=== PATIENT | female | born 1965 | race Two or more races ===

== ENCOUNTER → 2017-11-04 09:33 | Outpatient (CLI) | payer BC, SELFPAY ==
[2017-11-04 10:32] LABS: Basophils % 0.6 % (0.1-2.0); Eosinophils # 0.2 K/mm3 (0.0-0.4); Eosinophils % 2.1 % (0.1-12.0); Hematocrit 31.2 % (37.0-47.0); Hemoglobin 8.8 g/dL (12.2-16.2); Lymphocytes # 1.7 K/mm3 (0.7-4.5); Lymphocytes % 22.2 K/mm3 (10-50); Mean Corpuscular HGB Conc 28.1 g/dL (31.8-35.4); Mean Corpuscular Hemoglobin 19.8 pg (27.0-31.2); Mean Corpuscular Volume 70.6 fl (81-99); Mean Platelet Volume 7.4 fl (7.4-10.4); Monocytes # 0.5 K/mm3 (0.1-1.0); Monocytes % 6.3 % (1.7-9.3); Neutrophils # 5.2 K/mm3 (1.8-7.8); Neutrophils % 68.9 % (37.0-80.0); Platelet Count 472 K/mm3 (142-424); Red Blood Count 4.42 M/mm3 (4.20-5.40); White Blood Count 7.5 K/mm3 (4.8-10.8)
[2017-11-04 10:44] LABS: Alanine Aminotransferase 45 U/L (12-78); Albumin Level 3.8 gm/dL (3.4-5.0); Albumin/Globulin Ratio 0.8 (1.1-1.8); Alkaline Phosphatase 91 U/L (46-116); Anion Gap 15.6 mEq/L (5-15); Aspartate Amino Transferase 29 U/L (15-37); Bilirubin,Total 0.3 mg/dL (0.2-1.0); Blood Urea Nitrogen 12 mg/dL (7-18); Calcium 9.4 mg/dL (8.5-10.1); Carbon Dioxide 27 mmol/L (21.0-32.0); Chloride 104 mmol/L (98-107); Chol/HDL Ratio 2.5 (1-3.5); Cholesterol 144 mg/dL (140-200); Creatinine,Serum 0.98 mg/dL (0.55-1.02); Estimated Glomerular Filt Rate 60 ml/min (>60); GFR (African American) 72 ML/MIN (>60); Globulin 4.5 gm/dl (1.3-3.2); Glucose 103 mg/dL (74-106); HDL Cholesterol 57 mg/dL (29-89); LDL Cholesterol 77 mg/dL (0-130); Potassium 4.6 mmoL/L (3.5-5.1); Sodium 142 mmol/L (136-145); Total Protein,Serum 8.3 gm/dL (6.4-8.2); Triglycerides 48 mg/dL (30-200); VLDL Cholesterol 10 mg/dL (0-40)
== END ==
PROVIDERS: Visit Provider Internal Medicine
DX: N92.0 Excessive and frequent menstruation with regular cycle (principal); I10 Essential (primary) hypertension; E78.5 Hyperlipidemia, unspecified
CPT/HCPCS: 36415; 80053; 80061; 85025

== ENCOUNTER → 2017-11-12 13:38 | Outpatient (CLI) | payer BC, SELFPAY ==
--- NOTE | 2017-11-12 13:40 | US_ITS ---
US transvaginal HISTORY: ITS.REASON: dysfunctional/heavy menstrual bleeding ORDERING PHYSICIAN: Angelica Avina MD PATIENT AGE: 52 years FINDINGS: The uterus is enlarged at 11 x 5 x 6.5 cm. Combined endometrial thickness is 19 mm with some heterogeneous echogenicity. Nabothian cysts are noted. A 1.2 x 0.9 cm area of heterogeneous echogenicity is present along the anterior aspect of the uterus superiorly near the endometrial area consistent with a fibroid. There is a 2.2 x 1 cm area of heterogeneous echogenicity in the mid aspect of the uterus anteriorly consistent with fibroid The left ovary is 1.9 x 1.5 cm. Blood flow is present. The right ovary is 3 x 2.1 cm containing a 1.3 cm cyst. Blood flow is noted. No cul-de-sac fluid. IMPRESSION: Enlarged uterus with fibroid involvement along with thickened endometrium.
== END ==
PROVIDERS: PCP Internal Medicine; Visit Provider Obstetrics & Gynecology
DX: N93.9 Abnormal uterine and vaginal bleeding, unspecified (principal); N94.6 Dysmenorrhea, unspecified
CPT/HCPCS: 76830

== ENCOUNTER → 2019-09-20 08:28 | Outpatient (CLI) | payer BC, SELFPAY ==
[2019-09-20 10:03] LABS: Basophils % 0.6 % (0.1-2.0); Eosinophils # 0.2 K/mm3 (0.0-0.4); Eosinophils % 2.8 % (0.1-12.0); Hematocrit 43.9 % (37.0-47.0); Hemoglobin 13.8 g/dL (12.2-16.2); Lymphocytes # 1.4 K/mm3 (0.7-4.5); Mean Corpuscular HGB Conc 31.5 g/dL (31.8-35.4); Mean Corpuscular Hemoglobin 28.6 pg (27.0-31.2); Mean Corpuscular Volume 90.9 fl (81-99); Mean Platelet Volume 8.8 fl (7.4-10.4); Monocytes # 0.4 K/mm3 (0.1-1.0); Monocytes % 6.2 % (1.7-9.3); Neutrophils # 4.2 K/mm3 (1.8-7.8); Neutrophils % 68.4 % (37.0-80.0); Platelet Count 300 K/mm3 (142-424); Red Blood Count 4.83 M/mm3 (4.20-5.40); Red Cell Distribution Width 13.9 % (11.5-17.5); White Blood Count 6.2 K/mm3 (4.8-10.8)
[2019-09-20 11:42] LABS: Chloride 106 mmol/L (98-107); Potassium 4.3 mmoL/L (3.5-5.1); Sodium 141 mmol/L (136-145)
[2019-09-20 11:44] LABS: Blood Urea Nitrogen 12 mg/dl (7-17); Estimated Glomerular Filt Rate 58 ml/min (>60); GFR (African American) 70 ML/MIN (>60)
[2019-09-20 11:45] LABS: Alanine Aminotransferase 26 U/L (12-78); Albumin Level 4.2 g/dl (3.5-5.0); Albumin/Globulin Ratio 1.3 (1.1-1.8); Alkaline Phosphatase 79 U/L (38-126); Anion Gap 14.3 mEq/L (5-15); Aspartate Amino Transferase 31 U/L (14-36); Calcium 9.7 mg/dl (8.4-10.2); Carbon Dioxide 25 mmol/L (22.0-30.0); Cholesterol 131 mg/dl (140-200); Globulin 3.3 g/dL (1.3-3.2); Glucose 105 mg/dl (74-100); Total Protein,Serum 7.5 g/dl (6.3-8.2); Triglycerides 72 mg/dl (30-150); VLDL Cholesterol 14 mg/dL (0-40)
[2019-09-20 11:46] LABS: HDL Cholesterol 43 mg/dl (40-60)
[2019-09-20 11:56] LABS: Direct LDL Cholesterol 75.52 mg/dL (100-129)
[2019-09-21 04:04] LABS: Iron 151 ug/dL (27-159); UIBC 222 ug/dL (131-425)
[2019-09-21 14:59] LABS: Iron Saturation 40 % (15-55)
== END ==
PROVIDERS: Visit Provider Internal Medicine
DX: E78.5 Hyperlipidemia, unspecified (principal); I10 Essential (primary) hypertension; D50.9 Iron deficiency anemia, unspecified
CPT/HCPCS: 36415; 80053; 80061; 83540; 83550; 85025

== ENCOUNTER 2021-03-26 19:03 | Emergency (ER) | payer BC, SELFPAY ==
[2021-03-26 20:10] VITALS: BP 186/107; PULSE 74; RESP 20; TEMP 37; O2SAT 100; BMI 36.6
--- NOTE | 2021-03-26 20:40 | HMH.EDUTC ---
[facility] [place] Clinical Impression: Exposure to COVID-19 virus Sinusitis Qualifiers: Sinusitis location: unspecified location Chronicity: unspecified Qualified Code(s): J32.9 - Chronic sinusitis, unspecified Disposition: Home, Self-Care Condition on Discharge: Good Instructions: DI for COVID-19 (Suspected or Confirmed ), Preventing the Spread of Coronavirus Discharge Instructions Additional Instructions: *Monitor Temp, Over the counter Motrin or Tylenol as directed/as needed Tylenol every 4 hours and Motrin every 6 hours (as long as your family doctor has told you that you can take it) for fever or pain. and straight to ER if unable to lower temp less than 101.0 after medication given *Warm salt water gargles may help to soothe the throat *Throat Lozenges *Warm fluids like tea with honey may help to soothe the throat *Sleep elevated *Humidifier/Vaporizer *Flonase 2 sprays in each nostril daily but be aware that it may take 2-3 days before you notice improvement *Bromfed may cause drowsiness. Know how it effects you (your child) before driving, caring for small child, or sending your child to school. Not other antihistamines/allergy medications while taking bromfed Your throat swab was sent for culture. Those results are typically sent to your primary care. Be sure to follow up in 2-3 days with your family doctor/primary care physician if no improvement so they can review those result and treat if necessary. If you don?t have a primary care doctor, I recommend you get one but in the mean time, you will have to return to a walk in clinic Follow up IMMEDIATELY for new or worsening symptoms or no Noticeable improvement over the next 48-72 hours. 911 for difficulty breathing or swallowing You were tested for today for COVID19 your test result should be back in the next 24-48 hours, you was given handout on how to check for your results on [facility] if you have issues or no internet access you may call the [facility] You was given a handout with instructions for Self Quarantine and Self isolation for while you wait on test results and what to do if they are positive If you are positive the Health Dept will be contacting you also Make sure to take your Vitamins Vit. C Vit D and Zinc if you can take them Prescriptions: Fluticasone Propionate [Flonase Allergy Relief NS] 1 spray NS DAILY #1 each Transmission Status: Pending to [facility] Azithromycin [Z-Sherman 250mg Tab] 250 mg PO DIRECTED #6 tab Transmission Status: Pending to [facility] Referrals: Roman Keys [Primary Care Provider] - As needed Time of Disposition: 20:53 Medical Decision Making - Ashok Inquiry Pt receiving controlled substance: No Ashok was queried for this patient: No Vital Signs: 03/26/21 20:10 Temperature 98.6 F Temperature Source Oral Pulse Rate [Right Brachial] 74 Respiratory Rate 20 Blood Pressure [Right Arm] 186/107 H Blood Pressure Mean [Right Arm] 133 Blood Pressure Source [Right Arm] Automatic Cuff Blood Pressure Position [Right Arm] Sitting 02 Sat by Pulse Oximetry 100 Oxygen Delivery Method Room Air [facility] [place] HPI - General Stated complaint: covid test with symptoms Time Seen by Provider: 03/26/21 20:40 Mode of Arrival: Ambulatory Source of Information: Patient Limitations: No Limitations Description of Symptoms (Recalled from Triage Doc. by RN): PATIENT C/O LOSS OF SMELL, COUGH, DIARRHEA, AND CONGESTION. POSSIBLE SECONDARY EXPOSURE HEENT Symptoms (Recalled from RN notes): No Resp Symptoms (Recalled from RN notes): Yes Skin Symptoms (Recalled from RN notes): No MS Symptoms (Recalled from RN notes): No Functional Status (Recalled from RN notes): WNL - History of Present Illness Provider Complaint: Patient state that he son and daughter in law was dx with COVID about a week ago States that she has been keeping his kids States that she started with body aches, chills, sinus congestion and pressure along with diarrh
[2021-03-26 20:48] VITALS: BP 186/107; PULSE 74; RESP 20; TEMP 37; O2SAT 100
== END 2021-03-26 20:59 | disposition home or self-care (01) ==
PROVIDERS: Emergency Provider Nurse Practitioner; PCP Internal Medicine
DX: U07.1 COVID-19 (principal); J32.9 Chronic sinusitis, unspecified; I10 Essential (primary) hypertension
CPT/HCPCS: 99202; C9803; G0463; U0003; U0005

== ENCOUNTER → 2023-02-24 12:46 | Outpatient (CLI) | payer BC, SELFPAY ==
[2023-02-24 13:04] LABS: Basophils % 0.5 % (0.1-2.0); Eosinophils # 0.2 K/mm3 (0.0-0.4); Eosinophils % 2.6 % (0.1-12.0); Hematocrit 45.5 % (37.0-47.0); Lymphocytes # 1.5 K/mm3 (0.7-4.5); Lymphocytes % 22.9 % (10-50); Mean Corpuscular HGB Conc 32.9 g/dL (31.8-35.4); Mean Corpuscular Hemoglobin 32.1 pg (27.0-31.2); Mean Corpuscular Volume 97.6 fl (81-99); Mean Platelet Volume 8.5 fl (7.4-10.4); Monocytes # 0.4 K/mm3 (0.1-1.0); Monocytes % 5.9 % (1.7-9.3); Neutrophils # 4.4 K/mm3 (1.8-7.8); Neutrophils % 68.1 % (37.0-80.0); Platelet Count 318 K/mm3 (142-424); Red Blood Count 4.66 M/mm3 (4.20-5.40); Red Cell Distribution Width 12.5 % (11.5-17.5); White Blood Count 6.4 K/mm3 (4.8-10.8)
[2023-02-24 13:25] LABS: Alanine Aminotransferase 28 U/L (12-78); Albumin Level 4.5 g/dl (3.5-5.0); Albumin/Globulin Ratio 1.2 (1.1-1.8); Alkaline Phosphatase 105 U/L (38-126); Anion Gap 14.4 mEq/L (5-15); Aspartate Amino Transferase 29 U/L (14-36); Bilirubin,Total 0.8 mg/dl (0.2-1.3); Blood Urea Nitrogen 19 mg/dl (7-17); Calcium 9.4 mg/dl (8.4-10.2); Carbon Dioxide 26 mmol/L (22.0-30.0); Chloride 105 mmol/L (98-107); Chol/HDL Ratio 2.8 (1-3.5); Cholesterol 148 mg/dl (140-200); Estimated Glomerular Filt Rate 51 ml/min (>60); GFR (African American) 62 ML/MIN (>60); Globulin 3.7 g/dL (1.3-3.2); Glucose 100 mg/dl (74-100); HDL Cholesterol 52 mg/dl (40-60); Potassium 4.4 mmoL/L (3.5-5.1); Sodium 141 mmol/L (136-145); Total Protein,Serum 8.2 g/dl (6.3-8.2); Triglycerides 57 mg/dl (30-150); VLDL Cholesterol 11 mg/dL (0-40)
[2023-02-24 13:36] LABS: Direct LDL Cholesterol 76.03 mg/dL (100-129)
== END ==
LOC: LAB.DROPOF 12:47
PROVIDERS: PCP Internal Medicine; Visit Provider Internal Medicine
DX: I10 Essential (primary) hypertension (principal); E78.5 Hyperlipidemia, unspecified; D50.9 Iron deficiency anemia, unspecified
CPT/HCPCS: 80053; 80061; 85025

== ENCOUNTER 2023-08-25 09:52 | Outpatient (CLI) | payer BC, SELFPAY ==
--- NOTE | 2023-08-25 09:52 | MM_ITS ---
PROCEDURE INFORMATION: Exam: MG Bilateral Screening 3D Mammography Exam date and time: 08/25/2023 10:03 AM Age: 58 years old Clinical indication: Screening examination; Additional info: Screening mammogram . Family history of breast carcinoma. TECHNIQUE: Imaging protocol: Bilateral Screening tomosynthesis and 2D mammography including computer-aided detection (CAD) when performed. COMPARISON: No relevant prior studies available. FINDINGS: MAMMOGRAPHY: Breast composition: The breasts are heterogeneously dense, which may obscure small masses. Mass: No suspicious masses. Architectural distortion: No suspicious distortion. Calcifications: There are multiple bilateral groupings of calcifications scattered in the right upper outer quadrant at middle depth and in the upper outer and lower outer left breast at middle depth. These bilateral calcifications are best seen on CC projection. Asymmetric density: None. Skin thickening: None. Axillary adenopathy: None. IMPRESSION: 1. Recommend bilateral spot magnification CC/ML views for further evaluation of multiple bilateral groupings of calcifications in the outer right breast and outer left breast, as discussed above. 2. Of note, patient reports having prior mammograms. Every attempt should be made to obtain prior mammograms for comparison. If/when these prior exams become available for comparison, an addendum will be made, if necessary. 3. Given the reported risk factors for this patient, a breast cancer risk assessment may prove useful for further evaluation. ASSESSMENT: BI-RADS Category 0: Incomplete- Need Additional Imaging Evaluation and/or Prior Mammograms for Comparison
== END 2023-08-25 23:59 ==
LOC: RAD 09:52
PROVIDERS: PCP Internal Medicine; Visit Provider Obstetrics & Gynecology
DX: Z12.31 Encounter for screening mammogram for malignant neoplasm of breast (principal)
CPT/HCPCS: 77063; 77067

== ENCOUNTER 2023-10-02 13:41 | Outpatient (CLI) | payer BC, SELFPAY ==
--- NOTE | 2023-10-02 13:42 | MM_ITS ---
PROCEDURE INFORMATION: Exam: MG Bilateral Diagnostic Breast Tomosynthesis Exam date and time: 10/02/2023 1:39 PM Age: 58 years old Clinical indication: Patient recalled on the basis of a screening mammogram for further evaluation; Bilateral breasts; calcifications TECHNIQUE: Imaging protocol: Bilateral Diagnostic tomosynthesis and 2D mammography including computer-aided detection (CAD) when performed. Unilateral or bilateral exam. COMPARISON: MG MM DIG SCREENING MAMM BI W/CAD 08/25/2023 10:03 AM FINDINGS: MAMMOGRAPHY: Breast composition: The breast is heterogeneouly dense, which may obscure small masses (based on the most recent screening mammogram report). Digital diagnostic magnification views of both upper outer quadrants demonstrate fairly widespread calcifications. The calcifications appear fairly uniform in size, shape, and density and are probably benign in etiology. IMPRESSION: Probably benign calcifications in both upper outer quadrant. A six-month follow-up diagnostic bilateral mammogram with magnification views are recommended to ensure stability over time. ASSESSMENT: BI-RADS Category 3: Probably benign.
== END 2023-10-02 23:59 ==
LOC: RAD 13:42
PROVIDERS: PCP Internal Medicine; Visit Provider Obstetrics & Gynecology
DX: R92.8 Other abnormal and inconclusive findings on diagnostic imaging of breast (principal)
CPT/HCPCS: 77062; 77066; G0279

== ENCOUNTER 2024-02-16 17:01 | Outpatient (CLI) | payer BC, SELFPAY ==
[2024-02-16 17:30] LABS: Basophils % 0.6 % (0.1-2.0); Eosinophils # 0.1 K/mm3 (0.0-0.4); Eosinophils % 1.2 % (0.1-12.0); Hematocrit 43.5 % (37.0-47.0); Hemoglobin 14.3 g/dL (12.2-16.2); Lymphocytes # 1.5 K/mm3 (0.7-4.5); Mean Corpuscular HGB Conc 32.9 g/dL (31.8-35.4); Mean Corpuscular Hemoglobin 32.4 pg (27.0-31.2); Mean Corpuscular Volume 98.6 fl (81-99); Mean Platelet Volume 9.4 fl (7.4-10.4); Monocytes # 0.5 K/mm3 (0.1-1.0); Monocytes % 6.8 % (1.7-9.3); Neutrophils # 5.7 K/mm3 (1.8-7.8); Neutrophils % 72.4 % (37.0-80.0); Platelet Count 320 K/mm3 (142-424); Red Blood Count 4.41 M/mm3 (4.20-5.40); Red Cell Distribution Width 12.9 % (11.5-17.5); White Blood Count 7.9 K/mm3 (4.8-10.8)
[2024-02-16 17:51] LABS: Alanine Aminotransferase 39 U/L (12-78); Albumin Level 4.3 g/dl (3.5-5.0); Albumin/Globulin Ratio 1.2 (1.1-1.8); Alkaline Phosphatase 77 U/L (38-126); Anion Gap 16.1 mEq/L (5-15); Aspartate Amino Transferase 36 U/L (14-36); Bilirubin,Total 0.8 mg/dl (0.2-1.3); Blood Urea Nitrogen 14 mg/dl (7-17); Calcium 9.7 mg/dl (8.4-10.2); Carbon Dioxide 24 mmol/L (22.0-30.0); Chloride 102 mmol/L (98-107); Cholesterol 146 mg/dl (140-200); Estimated Glomerular Filt Rate 57 ml/min (>60); GFR (African American) 69 ML/MIN (>60); Globulin 3.6 g/dL (1.3-3.2); Glucose 118 mg/dl (74-100); HDL Cholesterol 48 mg/dl (40-60); Potassium 3.1 mmoL/L (3.5-5.1); Sodium 139 mmol/L (136-145); Total Protein,Serum 7.9 g/dl (6.3-8.2); Triglycerides 115 mg/dl (30-150); VLDL Cholesterol 23 mg/dL (0-40)
== END 2024-02-16 23:59 | disposition home or self-care (01) ==
LOC: LAB.DROPOF 17:01
PROVIDERS: PCP Internal Medicine; Visit Provider Internal Medicine
DX: E78.5 Hyperlipidemia, unspecified (principal); I10 Essential (primary) hypertension; Z12.11 Encounter for screening for malignant neoplasm of colon; Z86.2 Personal history of diseases of the blood and blood-forming organs and certain disorders involving the immune mechanism
CPT/HCPCS: 80053; 80061; 85025

== ENCOUNTER 2024-04-06 14:40 | Outpatient (CLI) | payer BC, SELFPAY ==
[2024-04-06 17:08] LABS: Potassium 4.3 mmoL/L (3.5-5.1)
[2024-04-06 17:35] LABS: Hemoglobin A1C 6.2 % (4.0-6.0)
== END 2024-04-06 23:59 | disposition home or self-care (01) ==
LOC: LAB.DROPOF 04-07 13:37
PROVIDERS: PCP Internal Medicine; Visit Provider Internal Medicine
DX: I10 Essential (primary) hypertension (principal); E87.6 Hypokalemia; R73.02 Impaired glucose tolerance (oral)
CPT/HCPCS: 83036; 84132

== ENCOUNTER 2025-01-13 09:59 | Outpatient (CLI) | payer BC, SELFPAY ==
[2025-01-13 15:10] LABS: Hematocrit 44.2 % (37.0-47.0); Hemoglobin 14.4 g/dL (12.2-16.2); Immature Granulocytes % 0.2 %; Mean Corpuscular HGB Conc 32.6 g/dL (31.8-35.4); Mean Corpuscular Hemoglobin 31.0 pg (27.0-31.2); Mean Corpuscular Volume 95.3 fl (81-99); Nucleated Red Blood Cells % 0 %; Platelet Count 268 K/mm3 (142-424); Red Blood Count 4.64 M/mm3 (4.20-5.40); Red Cell Distribution Width-SD 43.1 fL; White Blood Count 5.8 K/mm3 (4.8-10.8)
[2025-01-13 15:45] LABS: Alanine Aminotransferase 39 U/L (12-78); Albumin Level 4.7 g/dl (3.5-5.0); Albumin/Globulin Ratio 1.3 (1.1-1.8); Alkaline Phosphatase 97 U/L (38-126); Anion Gap 13.6 mEq/L (5-15); Aspartate Amino Transferase 40 U/L (14-36); Bilirubin,Total 1.3 mg/dl (0.2-1.3); Blood Urea Nitrogen 19 mg/dl (7-17); Calcium 9.8 mg/dl (8.4-10.2); Carbon Dioxide 29 mmol/L (22.0-30.0); Chloride 99 mmol/L (98-107); Cholesterol 178 mg/dl (140-200); Creatinine,Serum 1.00 mg/dl (0.52-1.04); Estimated Glomerular Filt Rate 57 ml/min (>60); GFR (African American) 69 ML/MIN (>60); Globulin 3.7 g/dL (1.3-3.2); Glucose 96 mg/dl (74-100); HDL Cholesterol 46 mg/dl (40-60); Potassium 4.6 mmoL/L (3.5-5.1); Sodium 137 mmol/L (136-145); Total Protein,Serum 8.4 g/dl (6.3-8.2); Triglycerides 83 mg/dl (30-150)
[2025-01-13 18:09] LABS: Hemoglobin A1C 7.4 % (4.0-6.0)
--- OUTSIDE RECORDS SUMMARY | 2025-01-17 10:06 | XMS_ITS ---
Author Organization Unknown Medications Medication Instructions Effective Dates (start - stop) Status 1 ML medroxyprogesterone alley yañez 150 MG/ML Injection [id number]:00:00.000+00 :00 - Completed losartan potassium 50 MG Oral Tablet [id number]:00:00.000+00 :00 - Completed temazepam 15 MG Oral Capsule 08-24-21:00:00.000+00 :00 - Completed acyclovir 200 MG Oral Capsule 03-01-06:00:00.000+00 :00 - Completed 1 ML medroxyprogesterone alley yañez 150 MG/ML Injection [id number]:00:00.000+00 :00 - Completed temazepam 15 MG Oral Capsule 08-22-15:00:00.000+00 :00 - Completed temazepam 15 MG Oral Capsule 09-12-06:00:00.000+00 :00 - Completed 1 ML medroxyprogesterone alley yañez 150 MG/ML Injection [id number]:00:00.000+00 :00 - Completed losartan potassium 50 MG Oral Tablet [id number]:00:00.000+00 :00 - Completed temazepam 15 MG Oral Capsule 08-21-15:00:00.000+00 :00 - Completed temazepam 15 MG Oral Capsule 09-13-05:00:00.000+00 :00 - Completed losartan potassium 50 MG Oral Tablet [id number]:00:00.000+00 :00 - Completed 1 ML medroxyprogesterone alley yañez 150 MG/ML Injection [id number]:00:00.000+00 :00 - Completed acyclovir 200 MG Oral Capsule 04-04-30:00:00.000+00 :00 - Completed temazepam 15 MG Oral Capsule 09-15-07:00:00.000+00 :00 - Completed amlodipine 10 MG Oral Tablet 09-15-07:00:00.000+00 :00 - Completed temazepam 15 MG Oral Capsule 08-23-19:00:00.000+00 :00 - Completed valacyclovir 500 MG Oral Tablet [id number]:00:00.000+00 :00 - Completed amlodipine 10 MG Oral Tablet 08-23-00:00:00.000+00 :00 - Completed temazepam 15 MG Oral Capsule 09-17-06:00:00.000+00 :00 - Completed temazepam 15 MG Oral Capsule 09-11-04::00.000+00 :00 - Completed temazepam 15 MG Oral Capsule 09-15-05:00:00.000+00 :00 - Completed cefdinir 300 MG Oral Capsule 08-22-15:00:00.000+00 :00 - Completed temazepam 15 MG Oral Capsule 09-16-05:00:00.000+00 :00 - Completed amlodipine 10 MG Oral Tablet 09-12-03:00:00.000+00 :00 - Completed losartan potassium 50 MG Oral Tablet [id number]:00:00.000+00 :00 - Completed amoxicillin 500 MG Oral Capsule [id number]:00:00.000+00 :00 - Completed hydrochlorothiazide 25 MG / triamterene 37.5 MG Oral Tablet [id number]:00:00.00 0+00 :00 - Completed hydrochlorothiazide 25 MG / triamterene 37.5 MG Oral Tablet [id number]:00:00.00 000 :00 - Completed hydrochlorothiazide 25 MG / triamterene 37.5 MG Oral Tablet [id number]:00:00.00 0+00 :00 - Completed hydrochlorothiazide 25 MG / triamterene 37.5 MG Oral Tablet [id number]:00:00.00 0+00 :00 - Completed Patient Care team information Name Category Status Period Participants - - Proposed period not known -
== END 2025-01-13 23:59 | disposition home or self-care (01) ==
LOC: LAB.DROPOF 01-17 10:00
PROVIDERS: PCP Internal Medicine; Visit Provider Internal Medicine
DX: I10 Essential (primary) hypertension (principal); E78.5 Hyperlipidemia, unspecified; R73.02 Impaired glucose tolerance (oral); Z86.2 Personal history of diseases of the blood and blood-forming organs and certain disorders involving the immune mechanism
CPT/HCPCS: 80053; 80061; 83036; 85025

== ENCOUNTER 2025-04-12 13:45 | Outpatient (CLI) | payer BC, SELFPAY ==
[2025-04-12 18:55] LABS: Hemoglobin A1C 5.7 % (4.0-6.0)
== END 2025-04-12 23:59 ==
LOC: LAB.DROPOF 04-13 09:54
PROVIDERS: PCP Internal Medicine; Visit Provider Internal Medicine
DX: E11.9 Type 2 diabetes mellitus without complications (principal)
CPT/HCPCS: 83036